=== PATIENT | female | born 1940 | race Caucasian/White ===

== ENCOUNTER 2018-11-17 15:30 | Inpatient (IN) | payer MEDICARE ==
--- NOTE | 2018-11-17 15:55 | EDM.PDOCBH ---
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) - History of Present Illness Onset: Gradual Onset Date: 11/16/18 Onset Time: 08:00 Duration: Hour(s):, Day(s):, Intermittent Location: Reports: Chest Quality: Reports: Other (SOB) Severity: Moderate Improves with: Reports: Rest, Other (sitting up) Worsens with: Reports: Other (supine position), Movement Context: Reports: Other (copd, CHF) Associated Symptoms: Reports: Cough, Shortness of Breath - Related Data Allergies Allergy/AdvReac Type Severity Reaction Status Date / Time morphine Allergy Itching Verified 12/27/15 23:35 Home Meds: Home Meds Baclofen 1 tab PO TID 12/27/15 [History] Brimonidine/Timolol [Combigan 0.2%/0.5% Ophth Soln] 2 drop OP BID 12/27/15 [ History] Latanoprost [Xalatan 0.005% Ophth Soln] 1 drop EYELF BEDTIME 12/27/15 [History] Levothyroxine Sodium [Synthroid] 100 mcg PO DAILY 12/27/15 [History] Oseltamivir [Tamiflu] 1 tab PO DAILY 12/27/15 [History] Sennosides [Senna] 2 tab PO DAILY 12/27/15 [History] Temazepam [Restoril] 15 mg PO BEDTIME PRN 12/27/15 [History] oxyCODONE [Oxycodone HCl] 1 tab PO BID 12/27/15 [History] Past Medical History HEENT History: Reports: Other (See Below) Other HEENT History: CLOSE-ANGLE GLAUCOMA Respiratory History: Reports: COPD Gastrointestinal History: Reports: GERD, Other (See Below) Other Gastrointestinal History: GASTRIC ULCER Musculoskeletal History: Reports: Osteoarthritis, Osteoporosis, Other (See Below ) Other Musculoskeletal History: MULTIPLE SCLEROSIS; CHRONIC PAIN SYNDROME Psychiatric History: Reports: Anxiety, Depression Endocrine/Metabolic History: Reports: Hypothyroidism, Vitamin D Deficiency - Past Surgical History Musculoskeletal Surgical History: Reports: Other (See Below) Social & Family History - Family History Family Medical History: Noncontributory ED ROS GENERAL - Review of Systems Review Of Systems: Unable To Obtain ED EXAM, BEHAVIORAL HEALTH - Physical Exam Exam: See Below Exam Limited By: Altered Mental Status General Appearance: Alert, WD/WN, Moderate Distress Eye Exam: Bilateral Eye: Normal Inspection COURSE, BEHAVIORAL HEALTH COMP - Course Vital Signs: Last Vital Signs Temp 36.8 C 11/17/18 17:29 Pulse 81 11/17/18 17:29 Resp 18 11/17/18 17:29 BP 113/71 11/17/18 17:29 Pulse Ox 97 11/17/18 17:29 Orders, Labs, Meds: Active Orders 24 hr Category Date Time Status Patient Status [ADT] Routine ADT 11/17/18 18:11 Ordered EKG Documentation Completion [RC] ASDIRECTED Care 11/17/18 16:12 Active Oxygen Therapy [RC] PRN Care 11/17/18 18:11 Ordered Pulse Oximetry [RC] PRN Care 11/17/18 18:14 Ordered RT Aerosol Therapy [RC] ASDIRECTED Care 11/17/18 17:56 Active RT Aerosol Therapy [RC] ASDIRECTED Care 11/17/18 18:15 Ordered Up With Assistance [RC] ASDIRECTED Care 11/17/18 18:11 Ordered VTE/DVT Education [RC] Per Unit Routine Care 11/17/18 18:11 Ordered Vital Signs [RC] Q4H Care 11/17/18 18:11 Ordered Regular Diet [DIET] Diet 11/17/18 Breakfast Ordered Chest 1V Frontal [CR] Stat Exams 11/17/18 16:11 Taken CULTURE BLOOD [BC] Urgent Lab 11/17/18 17:50 Received CULTURE BLOOD [BC] Urgent Lab 11/17/18 17:57 Received Albuterol [Proventil Neb Soln] Med 11/17/18 18:11 Ordered 2.5 mg NEB Q2H PRN Sodium Chloride 0.9% [Saline Flush] Med 11/17/18 18:11 Ordered 10 ml FLUSH ASDIRECTED PRN Blood Culture x2 Reflex Set [OM.PC] Urgent Oth 11/17/18 17:34 Ordered Peripheral IV Insertion Adult [OM.PC] Routine Oth 11/17/18 18:11 Ordered Peripheral IV Insertion Adult [OM.PC] Routine Oth 11/17/18 18:20 Ordered Resuscitation Status Routine Resus Stat 11/17/18 18:11 Ordered EKG 12 Lead [EK] Routine Ther 11/17/18 16:11 Ordered Medication Orders Albuterol (Proventil Neb Soln) 2.5 mg NEB Q2H PRN PRN Reason: Shortness Of Breath/wheezing Sodium Chloride (Saline Flush) 10 ml FLUSH ASDIRECTED PRN PRN Reason: Keep Vein Open Laboratory Tests 11/17/18 11/17/18 11/17/18 Range/Units 16:25 16:25 16:25 WBC 8.4 (4.5-12.0) X10-3/uL RBC 4.85 (3.23-5.20) x10(6)uL Hgb 14.1 (11.5-15.5) g/dL Hct 44.1 (30.0-51.3) % MCV 90.9 (80-96) fL MCH 29.1 (27.7-33.6) pg MCHC 32.0 L (32.2-35.4) g/dL RDW 13.8 (11.5-15.5) % Plt Count 209 (125-369) X10(3)uL MPV 8.6 (7.4-10.4) fL Neut % (Auto) 81.4 (46-82) % Lymph % (Auto) 6.2 L (13-37) % Dent % (Auto) 6.7 (4-12) % Eos % (Auto) 5 (1.0-5.0) % Baso % (Auto) 0 (0-2) % Neut # (Auto) 6.9 (1.6-8.3) # Lymph # (Auto) 0.5 L (0.6-5.0) # Dent # (Auto) 0.6 (0.0-1.3) # Eos # (Auto) 0.4 (0.0-0.8) # Baso # (Auto) 0.0 (0.0-0.2) # POC VBG pH (7.31-7.41) POC VBG pCO2 (41-51) mmHG POC VBG HCO3 (23-28) mmol/L POC VBG Total CO2 (24-29) mmol/L POC VBG Base Excess (-2-3) mmol/L Sodium 140 (135-145) mmol/L Potassium 3.9 (3.5-5.3) mmol/L Chloride 102 (100-110) mmol/L Carbon Dioxide 34 H (21-32) mmol/L BUN 17 (7-18) mg/dL Creatinine 0.8 (0.55-1.02) mg/dL Est Cr Clr Drug Dosing TNP Estimated GFR (MDRD) > 60 (>60) BUN/Creatinine Ratio 21.3 H (9-20) Glucose 114 (80-116) mg/dL Lactic Acid (0.4-2.2) mmol/L Calcium 9.0 (8.6-10.2) mg/dL Troponin I < 0.017 L (<0.017-0.056) ng/mL NT-Pro-B Natriuret Pep 334 (<=450) pg/mL 11/17/18 11/17/18 11/17/18 Range/Units 16:25 16:30 17:42 WBC (4.5-12.0) X10-3/uL RBC (3.23-5.20) x10(6)uL Hgb (11.5-15.5) g/dL Hct (30.0-51.3) % MCV (80-96) fL MCH (27.7-33.6) pg MCHC (32.2-35.4) g/dL RDW (11.5-15.5) % Plt Count (125-369) X10(3)uL MPV (7.4-10.4) fL Neut % (Auto) (46-82) % Lymph % (Auto) (13-37) % Dent % (Auto) (4-12) % Eos % (Auto) (1.0-5.0) % Baso % (Auto) (0-2) % Neut # (Auto) (1.6-8.3) # Lymph # (Auto) (0.6-5.0) # Dent # (Auto) (0.0-1.3) # Eos # (Auto) (0.0-0.8) # Baso # (Auto) (0.0-0.2) # POC VBG pH 7.28 L Cancelled (7.31-7.41) POC VBG pCO2 71.2 H Cancelled (41-51) mmHG POC VBG HCO3 33.6 H Cancelled (23-28) mmol/L POC VBG Total CO2 36 H Cancelled (24-29) mmol/L POC VBG Base Excess 7 H Cancelled (-2-3) mmol/L Sodium (135-145) mmol/L Potassium (3.5-5.3) mmol/L Chloride (100-110) mmol/L Carbon Dioxide (21-32) mmol/L BUN (7-18) mg/dL Creatinine (0.55-1.02) mg/dL Est Cr Clr Drug Dosing Estimated GFR (MDRD) (>60) BUN/Creatinine Ratio (9-20) Glucose (80-116) mg/dL Lactic Acid 0.7 (0.4-2.2) mmol/L Calcium (8.6-10.2) mg/dL Troponin I (<0.017-0.056) ng/mL NT-Pro-B Natriuret Pep (<=450) pg/mL Medications Generic Name Dose Route Start Last Admin Trade Name Freq PRN Reason Stop Dose Admin Albuterol 2.5 mg 11/17/18 18:11 Proventil Neb Soln NEB Q2H PRN Shortness Of Breath/wheezing Sodium Chloride 10 ml 11/17/18 18:11 Saline Flush FLUSH ASDIRECTED PRN Keep Vein Open Discontinued Medications Generic Name Dose Route Start Last Admin Trade Name Freq PRN Reason Stop Dose Admin Albuterol/Ipratropium 3 ml 11/17/18 17:56 Duoneb 3.0-0.5 Mg/3 Ml NEB 11/17/18 17:57 ONETIME STA Levofloxacin 500 mg 11/17/18 18:08 Levaquin PO 11/17/18 18:09 ONETIME ONE Methylprednisolone Sodium Succinate 125 mg 11/17/18 18:03 Solu-Medrol IVPUSH 11/17/18 18:04 ONETIME ONE Departure - Discharge Information Referrals: Bruce Mitchell MD [Primary Care Provider] - - My Orders Last 24 Hours: My Active Orders 11/17/18 16:11 Chest 1V Frontal [CR] Stat EKG 12 Lead [EK] Routine 11/17/18 16:12 EKG Documentation Completion [RC] ASDIRECTED 11/17/18 17:34 Blood Culture x2 Reflex Set [OM.PC] Urgent 11/17/18 17:50 CULTURE BLOOD [BC] Urgent 11/17/18 17:56 RT Aerosol Therapy [RC] ASDIRECTED 11/17/18 17:57 CULTURE BLOOD [BC] Urgent 11/17/18 18:11 Patient Status [ADT] Routine Oxygen Therapy [RC] PRN Up With Assistance [RC] ASDIRECTED VTE/DVT Education [RC] Per Unit Routine Vital Signs [RC] Q4H Albuterol [Proventil Neb Soln] 2.5 mg NEB Q2H PRN Sodium Chloride 0.9% [Saline Flush] 10 ml FLUSH ASDIRECTED PRN Peripheral IV Insertion Adult [OM.PC] Routine Resuscitation Status Routine 11/17/18 18:14 Pulse Oximetry [RC] PRN 11/17/18 18:15 RT Aerosol Therapy [RC] ASDIRECTED 11/17/18 18:20 Peripheral IV Insertion Adult [OM.PC] Routine 11/17/18 Breakfast Regular Diet [DIET] - Assessment/Plan Last 24 Hours: My Active Orders 11/17/18 16:11 Chest 1V Frontal [CR] Stat EKG 12 Lead [EK] Routine 11/17/18 16:12 EKG Documentation Completion [RC] ASDIRECTED 11/17/18 17:34 Blood Culture x2 Reflex Set [OM.PC] Urgent 11/17/18 17:50 CULTURE BLOOD [BC] Urgent 11/17/18 17:56 RT Aerosol Therapy [RC] ASDIRECTED 11/17/18 17:57 CULTURE BLOOD [BC] Urgent 11/17/18 18:11 Patient Status [ADT] Routine Oxygen Therapy [RC] PRN Up With Assistance [RC] ASDIRECTED VTE/DVT Education [RC] Per Unit Routine Vital Signs [RC] Q4H Albuterol [Proventil Neb Soln] 2.5 mg NEB Q2H PRN Sodium Chloride 0.9% [Saline Flush] 10 ml FLUSH ASDIRECTED PRN Peripheral IV Insertion Adult [OM.PC] Routine Resuscitation Status Routine 11/17/18 18:14 Pulse Oximetry [RC] PRN 11/17/18 18:15 RT Aerosol Therapy [RC] ASDIRECTED 11/17/18 18:20 Peripheral IV Insertion Adult [OM.PC] Routine 11/17/18 Breakfast Regular Diet [DIET]
[2018-11-17] MEDS ORDERED: Albuterol/Ipratropium 3.0-0.5 MG/3 ML Neb Soln NEB STA (17:56)
[2018-11-17] MEDS ORDERED: methylPREDNISolone Sodium Succinate 125 MG/2 ML SDV IVPUSH ONE (18:03)
[2018-11-17] MEDS ORDERED: Levofloxacin 500 MG Tab PO ONE (18:08)
[2018-11-17] MEDS ORDERED: Sodium Chloride 0.9% 10 ML Syringe FLUSH PRN (18:11)
[2018-11-17] MEDS ORDERED: Albuterol 0.083% 2.5 MG/3 ML Neb Soln NEB PRN (18:11)
--- NOTE | 2018-11-17 18:35 | EDM.PDOC ---
ED HPI GENERAL MEDICAL PROBLEM - General Chief Complaint: Respiratory Problem Stated Complaint: TEMP Time Seen by Provider: 11/17/18 15:30 Source of Information: Reports: Patient, Other (managed care nurse) History Limitations: Reports: Altered Mental Status, Physical Impairment - History of Present Illness INITIAL COMMENTS - FREE TEXT/NARRATIVE: 78 y.o.w.f with multiple med issues, including COPD, morbid obesity, weakness, came [place] the [place] to the [place] because she could not breath. Her Pulse ox on RA is 86% in supine position, in upright position it was 89%, no chest pain, legs are swollen and painful. No N/V/D Pt is a poor historian, no family is present BP 131/108 Temp 36.8 RR 18 Pulse ox 97% on 3 liters O2 Pulse 73 Onset Date: 11/15/18 Onset Time: 08:00 Duration: Day(s):, Getting Worse, Waxing/Waning Location: Reports: Chest, Generalized Severity: Moderate Improves with: Reports: Medication, Rest Worsens with: Reports: Movement Context: Reports: Sick Contact Associated Symptoms: Reports: Cough, Fever/Chills, Shortness of Breath, Weakness Treatments BALL[employer]TRIDGE TESTER: Reports: Oxygen - Related Data Allergies Allergy/AdvReac Type Severity Reaction Status Date / Time morphine Allergy Itching Verified 12/27/15 23:35 Home Meds: Home Meds Baclofen 1 tab PO TID 12/27/15 [History] Brimonidine/Timolol [Combigan 0.2%/0.5% Ophth Soln] 2 drop OP BID 12/27/15 [ History] Latanoprost [Xalatan 0.005% Ophth Soln] 1 drop EYELF BEDTIME 12/27/15 [History] Levothyroxine Sodium [Synthroid] 100 mcg PO DAILY 12/27/15 [History] Sennosides [Senna] 2 tab PO DAILY 12/27/15 [History] oxyCODONE [Oxycodone HCl] 1 tab PO BID 12/27/15 [History] Ascorbic Acid [Vitamin C] 250 mg PO DAILY 11/17/18 [History] Cranberry 500 mg PO DAILY 11/17/18 [History] Melatonin 5 mg PO BEDTIME 11/17/18 [History] Propranolol HCl [Propranolol HCl ER] 60 mg PO DAILY 11/17/18 [History] Vortioxetine Hydrobromide [Trintellix] 5 mg PO DAILY 11/17/18 [History] hydrOXYzine pamoate [Hydroxyzine Pamoate] 50 mg PO DAILY 11/17/18 [History] risperiDONE [Risperdal] 0.25 mg PO DAILY 11/17/18 [History] Past Medical History HEENT History: Reports: Other (See Below) Other HEENT History: CLOSE-ANGLE GLAUCOMA Respiratory History: Reports: COPD Gastrointestinal History: Reports: GERD, Other (See Below) Other Gastrointestinal History: GASTRIC ULCER Musculoskeletal History: Reports: Osteoarthritis, Osteoporosis, Other (See Below ) Other Musculoskeletal History: MULTIPLE SCLEROSIS; CHRONIC PAIN SYNDROME Neurological History: Reports: None Psychiatric History: Reports: Anxiety, Depression Endocrine/Metabolic History: Reports: Hypothyroidism, Vitamin D Deficiency Dermatologic History: Reports: None - Past Surgical History Musculoskeletal Surgical History: Reports: Other (See Below) Social & Family History - Family History Family Medical History: Noncontributory - Tobacco Use Smoking Status *Q: Unknown Ever Smoked - Caffeine Use Caffeine Use: Reports: Coffee - Recreational Drug Use Recreational Drug Use: No ED ROS GENERAL - Review of Systems Review Of Systems: See Below Constitutional: Reports: Weakness, Weight Gain HEENT: Reports: No Symptoms Respiratory: Reports: Shortness of Breath Cardiovascular: Reports: Blood Pressure Problem Endocrine: Reports: No Symptoms GI/Abdominal: Reports: No Symptoms : Reports: No Symptoms Musculoskeletal: Reports: Other (weakness) Skin: Reports: No Symptoms Neurological: Reports: Difficulty Walking, Weakness Psychiatric: Reports: No Symptoms Hematologic/Lymphatic: Reports: No Symptoms Immunologic: Reports: No Symptoms ED EXAM, GENERAL - Physical Exam Exam: See Below Exam Limited By: Physical Impairment General Appearance: Alert, WD/WN, Moderate Distress, Obese Eye Exam: Bilateral Eye: Normal Inspection Ears: Normal External Exam Ear Exam: Bilateral Ear: Auricle Normal Nose: Normal Inspection, Normal Mucosa, No Blood Throat/Mouth: Normal Lips, Normal Voice, No Airway Compromise Head: Atraumatic, Normocephalic Neck: Normal Inspection, Supple, Non-Tender, Full Range of Motion Respiratory/Chest: Respiratory Distress, Crackles, Rales, Rhonchi, Wheezing, Accessory Muscle Use, Prolonged Expiration Cardiovascular: Normal Peripheral Pulses, Regular Rate, Rhythm Peripheral Pulses: 2+: Brachial (L) GI/Abdominal: Normal Bowel Sounds, Soft, Non-Tender (Female) Exam: Deferred Rectal (Female) Exam: Deferred Back Exam: Normal Inspection, Full Range of Motion Extremities: Normal Range of Motion, Normal Capillary Refill, Pedal Edema Neurological: Alert, CN II-XII Intact, Abnormal Gait (too weak to ambulate) Psychiatric: Flat Affect Skin Exam: Warm, Dry, Intact, Normal Color, No Rash Lymphatic: No Adenopathy EKG INTERPRETATION EKG Date: 11/17/18 Time: 16:40 Rhythm: NSR Rate (Beats/Min): 69 Watson: Normal P-Wave: Present QRS: Normal ST-T: Normal QT: Normal Comparison: NA - No Prior EKG Course - Vital Signs Text/Narrative:: 78 y.o.w.f with multiple med issues, including COPD, morbid obesity, weakness, came from the [place] to the ed because she could not breath. Her Pulse ox on RA is 86% in supine position, in upright position it was 89%, no chest pain, legs are swollen and painful. No N/V/D Pt is a poor historian, no family is present BP 131/108 Temp 36.8 RR 18 Pulse ox 97% on 3 liters O2 Pulse 73 PE: 78 y.o.w.f with mulp medical problems came to the ED with Hypoxemia Imaging: CXR: Left sided lower lobe pneumonia, COPD, Atelectasis, CHF as per RAD Labs: CBC: Nl wbc H/H nl BNP 334, CO2 34 Trop 0.017 D Dimer: 1.05 Impression: CHF, COPD with hypoxemia, pneumonia. Morbid obesity. DNR/DNI, D dimer elevated Tx: 2 liters O2 by Xiao ROSENBERG. Duoneb, Solu Medrol. BP was borderline, low, no Lasix was given. Pt refused Lovenox 1mg/kg Reexam: Pt was stable in the ED 6.06 pm Consultation: Dr. Ashley, Hospitalist: Admit pt to [facility] Plan: Admit pt to [facility]. Angio Chest ordered for 9 am 11/18/2018: was canceled because pt refused Lovenox shots Last Recorded V/S: Last Vital Signs Temp 36.7 C 11/18/18 00:00 Pulse 64 11/18/18 00:00 Resp 16 11/18/18 00:00 BP 105/56 L 11/18/18 00:00 Pulse Ox 93 L 11/18/18 00:00 - Orders/Labs/Meds Orders: Active Orders 24 hr Category Date Time Status Patient Status [ADT] Routine ADT 11/17/18 18:11 Active EKG Documentation Completion [RC] ASDIRECTED Care 11/17/18 16:12 Active Oxygen Therapy [RC] PRN Care 11/17/18 18:11 Active Pulse Oximetry [RC] PRN Care 11/17/18 18:14 Active RT Aerosol Therapy [RC] ASDIRECTED Care 11/17/18 17:56 Active RT Aerosol Therapy [RC] ASDIRECTED Care 11/17/18 18:15 Active Up With Assistance [RC] ASDIRECTED Care 11/17/18 18:11 Active VTE/DVT Education [RC] Per Unit Routine Care 11/17/18 18:11 Active Vital Signs [RC] 00,04,08,12,16,20 Care 11/17/18 18:11 Active Regular Diet [DIET] Diet 11/17/18 Breakfast Ordered Chest 1V Frontal [CR] Stat Exams 11/17/18 16:11 Taken CULTURE BLOOD [BC] Urgent Lab 11/17/18 17:50 Received CULTURE BLOOD [BC] Urgent Lab 11/17/18 17:57 Received Albuterol [Proventil Neb Soln] Med 11/17/18 18:11 Active 2.5 mg NEB Q2H PRN Sodium Chloride 0.9% [Saline Flush] Med 11/17/18 18:11 Active 10 ml FLUSH ASDIRECTED PRN Blood Culture x2 Reflex Set [OM.PC] Urgent Oth 11/17/18 17:34 Ordered Peripheral IV Insertion Adult [OM.PC] Routine Oth 11/17/18 18:11 Ordered Peripheral IV Insertion Adult [OM.PC] Routine Oth 11/17/18 18:20 Ordered Resuscitation Status Routine Resus Stat 11/17/18 18:11 Ordered EKG 12 Lead [EK] Routine Ther 11/17/18 16:11 Ordered Medication Orders Albuterol (Proventil Neb Soln) 2.5 mg NEB Q2H PRN PRN Reason: Shortness Of Breath/wheezing Sodium Chloride (Saline Flush) 10 ml FLUSH ASDIRECTED PRN PRN Reason: Keep Vein Open Last Admin: 11/17/18 18:48 Dose: 10 ml Labs: Laboratory Tests 11/17/18 11/17/18 11/17/18 Range/Units 16:25 16:25 16:25 WBC 8.4 (4.5-12.0) X10-3/uL RBC 4.85 (3.23-5.20) x10(6)uL Hgb 14.1 (11.5-15.5) g/dL Hct 44.1 (30.0-51.3) % MCV 90.9 (80-96) fL MCH 29.1 (27.7-33.6) pg MCHC 32.0 L (32.2-35.4) g/dL RDW 13.8 (11.5-15.5) % Plt Count 209 (125-369) X10(3)uL MPV 8.6 (7.4-10.4) fL Neut % (Auto) 81.4 (46-82) % Lymph % (Auto) 6.2 L (13-37) % Young % (Auto) 6.7 (4-12) % Eos % (Auto) 5 (1.0-5.0) % Baso % (Auto) 0 (0-2) % Neut # (Auto) 6.9 (1.6-8.3) # Lymph # (Auto) 0.5 L (0.6-5.0) # Young # (Auto) 0.6 (0.0-1.3) # Eos # (Auto) 0.4 (0.0-0.8) # Baso # (Auto) 0.0 (0.0-0.2) # D-Dimer, Quantitative (0.0-0.59) mg/LFEU POC VBG pH (7.31-7.41) POC VBG pCO2 (41-51) mmHG POC VBG HCO3 (23-28) mmol/L POC VBG Total CO2 (24-29) mmol/L POC VBG Base Excess (-2-3) mmol/L Sodium 140 (135-145) mmol/L Potassium 3.9 (3.5-5.3) mmol/L Chloride 102 (100-110) mmol/L Carbon Dioxide 34 H (21-32) mmol/L BUN 17 (7-18) mg/dL Creatinine 0.8 (0.55-1.02) mg/dL Est Cr Clr Drug Dosing TNP Estimated GFR (MDRD) > 60 (>60) BUN/Creatinine Ratio 21.3 H (9-20) Glucose 114 (80-116) mg/dL Lactic Acid (0.4-2.2) mmol/L Calcium 9.0 (8.6-10.2) mg/dL Troponin I < 0.017 L (<0.017-0.056) ng/mL NT-Pro-B Natriuret Pep 334 (<=450) pg/mL 11/17/18 11/17/18 11/17/18 Range/Units 16:25 16:25 16:30 WBC (4.5-12.0) X10-3/uL RBC (3.23-5.20) x10(6)uL Hgb (11.5-15.5) g/dL Hct (30.0-51.3) % MCV (80-96) fL MCH (27.7-33.6) pg MCHC (32.2-35.4) g/dL RDW (11.5-15.5) % Plt Count (125-369) X10(3)uL MPV (7.4-10.4) fL Neut % (Auto) (46-82) % Lymph % (Auto) (13-37) % Young % (Auto) (4-12) % Eos % (Auto) (1.0-5.0) % Baso % (Auto) (0-2) % Neut # (Auto) (1.6-8.3) # Lymph # (Auto) (0.6-5.0) # Young # (Auto) (0.0-1.3) # Eos # (Auto) (0.0-0.8) # Baso # (Auto) (0.0-0.2) # D-Dimer, Quantitative 1.05 H (0.0-0.59) mg/LFEU POC VBG pH 7.28 L (7.31-7.41) POC VBG pCO2 71.2 H (41-51) mmHG POC VBG HCO3 33.6 H (23-28) mmol/L POC VBG Total CO2 36 H (24-29) mmol/L POC VBG Base Excess 7 H (-2-3) mmol/L Sodium (135-145) mmol/L Potassium (3.5-5.3) mmol/L Chloride (100-110) mmol/L Carbon Dioxide (21-32) mmol/L BUN (7-18) mg/dL Creatinine (0.55-1.02) mg/dL Est Cr Clr Drug Dosing Estimated GFR (MDRD) (>60) BUN/Creatinine Ratio (9-20) Glucose (80-116) mg/dL Lactic Acid 0.7 (0.4-2.2) mmol/L Calcium (8.6-10.2) mg/dL Troponin I (<0.017-0.056) ng/mL NT-Pro-B Natriuret Pep (<=450) pg/mL 11/17/18 Range/Units 17:42 WBC (4.5-12.0) X10-3/uL RBC (3.23-5.20) x10(6)uL Hgb (11.5-15.5) g/dL Hct (30.0-51.3) % MCV (80-96) fL MCH (27.7-33.6) pg MCHC (32.2-35.4) g/dL RDW (11.5-15.5) % Plt Count (125-369) X10(3)uL MPV (7.4-10.4) fL Neut % (Auto) (46-82) % Lymph % (Auto) (13-37) % Young % (Auto) (4-12) % Eos % (Auto) (1.0-5.0) % Baso % (Auto) (0-2) % Neut # (Auto) (1.6-8.3) # Lymph # (Auto) (0.6-5.0) # Young # (Auto) (0.0-1.3) # Eos # (Auto) (0.0-0.8) # Baso # (Auto) (0.0-0.2) # D-Dimer, Quantitative (0.0-0.59) mg/LFEU POC VBG pH Cancelled (7.31-7.41) POC VBG pCO2 Cancelled (41-51) mmHG POC VBG HCO3 Cancelled (23-28) mmol/L POC VBG Total CO2 Cancelled (24-29) mmol/L POC VBG Base Excess Cancelled (-2-3) mmol/L Sodium (135-145) mmol/L Potassium (3.5-5.3) mmol/L Chloride (100-110) mmol/L Carbon Dioxide (21-32) mmol/L BUN (7-18) mg/dL Creatinine (0.55-1.02) mg/dL Est Cr Clr Drug Dosing Estimated GFR (MDRD) (>60) BUN/Creatinine Ratio (9-20) Glucose (80-116) mg/dL Lactic Acid (0.4-2.2) mmol/L Calcium (8.6-10.2) mg/dL Troponin I (<0.017-0.056) ng/mL NT-Pro-B Natriuret Pep (<=450) pg/mL Meds: Medications Generic Name Dose Route Start Last Admin Trade Name Freq PRN Reason Stop Dose Admin Albuterol 2.5 mg 11/17/18 18:11 Proventil Neb Soln NEB Q2H PRN Shortness Of Breath/wheezing Sodium Chloride 10 ml 11/17/18 18:11 11/17/18 18:48 Saline Flush FLUSH 10 ml ASDIRECTED PRN Administration Keep Vein Open Discontinued Medications Generic Name Dose Route Start Last Admin Trade Name Freq PRN Reason Stop Dose Admin Albuterol/Ipratropium 3 ml 11/17/18 17:56 11/17/18 18:30 Duoneb 3.0-0.5 Mg/3 Ml NEB 11/17/18 17:57 3 ml ONETIME STA Administration Enoxaparin Sodium 80 mg 11/18/18 02:08 11/18/18 02:42 Lovenox SUBCUT 11/18/18 02:09 Not Given ONETIME STA Levofloxacin 500 mg 11/17/18 18:08 11/17/18 18:31 Levaquin PO 11/17/18 18:09 500 mg ONETIME ONE Administration Methylprednisolone Sodium Succinate 125 mg 11/17/18 18:03 11/17/18 18:30 Solu-Medrol IVPUSH 11/17/18 18:04 125 mg ONETIME ONE Administration Departure - Departure Time of Disposition: 18:00 Disposition: Admitted As Inpatient 66 Condition: Fair Clinical Impression: COPD (chronic obstructive pulmonary disease), Pneumonia - Discharge Information - My Orders Last 24 Hours: My Active Orders 11/17/18 16:11 Chest 1V Frontal [CR] Stat EKG 12 Lead [EK] Routine 11/17/18 16:12 EKG Documentation Completion [RC] ASDIRECTED 11/17/18 17:34 Blood Culture x2 Reflex Set [OM.PC] Urgent 11/17/18 17:50 CULTURE BLOOD [BC] Urgent 11/17/18 17:56 RT Aerosol Therapy [RC] ASDIRECTED 11/17/18 17:57 CULTURE BLOOD [BC] Urgent 11/17/18 18:11 Patient Status [ADT] Routine Oxygen Therapy [RC] PRN Up With Assistance [RC] ASDIRECTED VTE/DVT Education [RC] Per Unit Routine Vital Signs [RC] 00,04,08,12,16,20 Albuterol [Proventil Neb Soln] 2.5 mg NEB Q2H PRN Sodium Chloride 0.9% [Saline Flush] 10 ml FLUSH ASDIRECTED PRN Peripheral IV Insertion Adult [OM.PC] Routine Resuscitation Status Routine 11/17/18 18:14 Pulse Oximetry [RC] PRN 11/17/18 18:15 RT Aerosol Therapy [RC] ASDIRECTED 11/17/18 18:20 Peripheral IV Insertion Adult [OM.PC] Routine 11/17/18 Breakfast Regular Diet [DIET] - Assessment/Plan Last 24 Hours: My Active Orders 11/17/18 16:11 Chest 1V Frontal [CR] Stat EKG 12 Lead [EK] Routine 11/17/18 16:12 EKG Documentation Completion [RC] ASDIRECTED 11/17/18 17:34 Blood Culture x2 Reflex Set [OM.PC] Urgent 11/17/18 17:50 CULTURE BLOOD [BC] Urgent 11/17/18 17:56 RT Aerosol Therapy [RC] ASDIRECTED 11/17/18 17:57 CULTURE BLOOD [BC] Urgent 11/17/18 18:11 Patient Status [ADT] Routine Oxygen Therapy [RC] PRN Up With Assistance [RC] ASDIRECTED VTE/DVT Education [RC] Per Unit Routine Vital Signs [RC] 00,04,08,12,16,20 Albuterol [Proventil Neb Soln] 2.5 mg NEB Q2H PRN Sodium Chloride 0.9% [Saline Flush] 10 ml FLUSH ASDIRECTED PRN Peripheral IV Insertion Adult [OM.PC] Routine Resuscitation Status Routine 02/14/19 18:14 Pulse Oximetry [RC] PRN 11/17/18 18:15 RT Aerosol Therapy [RC] ASDIRECTED 11/17/18 18:20 Peripheral IV Insertion Adult [OM.PC] Routine 11/17/18 Breakfast Regular Diet [DIET]
[2018-11-18] MEDS ORDERED: Enoxaparin 80 MG/0.8 ML Syringe SUBCUT STA (02:08)
--- NOTE | 2018-11-18 09:29 | CR ---
INDICATION: Short of breath. CHEST: An AP upright portable view of the chest was obtained, 11/17/18, and compared with 11/09/18. There is a linear density in the lower middle lung field on the left, which may represent a linear atelectatic strand, which appears more prominent than on the previous study. No definite consolidating pneumonia or effusion was seen; however, heavy markings are noted in the mid lung field on the right and at both lung bases, especially on the left, making it difficult to exclude minimal patchy bronchopneumonia. Diaphragm leaves appear to be flattened with hyperaeration suggesting COPD. The heart did not appear grossly enlarged. The aorta is tortuous with calcification in the arch. Dextroconvex scoliosis is noted at the thoracolumbar spine. IMPRESSION: 1. No definite acute process but difficult to exclude a linear atelectatic strand in the lower middle lung field on the left and minimal patchy bronchopneumonia and areas of heavy markings, which more likely are due to pulmonary fibrosis and should be correlated clinically. 2. Probable COPD. 3. Probable pulmonary fibrosis. 4. ASD aorta. 5. Scoliosis. Report was called to Dr. Ayers at 1728 hours on 11/17/18. [id number]
--- NOTE | 2018-11-18 09:57 | PCM.HP ---
H&P History of Present Illness - General Date of Service: 11/18/18 Admit Problem/Dx: Admission Diagnosis/Problem Admission Diagnosis/Problem Pneumonia Source of Information: Patient, Old Records - History of Present Illness Initial Comments - Free Text/Narative: Jen is a 78-year-old female admitted because of possible pneumonia. She presented to the ED with good fever increasing shortness of breath and was found to be slightly hypoxic. She complains of no chest pain or cough no nausea vomiting. She does have a history of COPD, she is oxygen dependent, she has MS , hypertension and has been generally weak. - Related Data Allergies/Adverse Reactions: Allergies Allergy/AdvReac Type Severity Reaction Status Date / Time morphine Allergy Itching Verified 12/27/15 23:35 Home Medications: Home Meds Baclofen 1 tab PO TID 12/27/15 [History] Brimonidine/Timolol [Combigan 0.2%/0.5% Ophth Soln] 2 drop OP BID 12/27/15 [ History] Latanoprost [Xalatan 0.005% Ophth Soln] 1 drop EYELF BEDTIME 12/27/15 [History] Levothyroxine Sodium [Synthroid] 100 mcg PO DAILY 12/27/15 [History] Sennosides [Senna] 2 tab PO DAILY 12/27/15 [History] oxyCODONE [Oxycodone HCl] 1 tab PO BID 12/27/15 [History] Ascorbic Acid [Vitamin C] 250 mg PO DAILY 11/17/18 [History] Cranberry 500 mg PO DAILY 11/17/18 [History] Melatonin 5 mg PO BEDTIME 11/17/18 [History] Propranolol HCl [Propranolol HCl ER] 60 mg PO DAILY 11/17/18 [History] Vortioxetine Hydrobromide [Trintellix] 5 mg PO DAILY 11/17/18 [History] hydrOXYzine pamoate [Hydroxyzine Pamoate] 50 mg PO DAILY 11/17/18 [History] risperiDONE [Risperdal] 0.25 mg PO DAILY 11/17/18 [History] Past Medical History HEENT History: Reports: Other (See Below) Other HEENT History: CLOSE-ANGLE GLAUCOMA Respiratory History: Reports: COPD Gastrointestinal History: Reports: GERD, Other (See Below) Other Gastrointestinal History: GASTRIC ULCER Musculoskeletal History: Reports: Osteoarthritis, Osteoporosis, Other (See Below ) Other Musculoskeletal History: MULTIPLE SCLEROSIS; CHRONIC PAIN SYNDROME Neurological History: Reports: None Psychiatric History: Reports: Anxiety, Depression Endocrine/Metabolic History: Reports: Hypothyroidism, Vitamin D Deficiency Dermatologic History: Reports: None - Past Surgical History Musculoskeletal Surgical History: Reports: Other (See Below) Social & Family History - Family History Family Medical History: Noncontributory - Tobacco Use Smoking Status *Q: Unknown Ever Smoked - Caffeine Use Caffeine Use: Reports: Coffee - Recreational Drug Use Recreational Drug Use: No H&P Review of Systems - Review of Systems: Review Of Systems: ROS reveals no pertinent complaints other than HPI. Exam - Exam Exam: See Below - Vital Signs Vital Signs: Last Vital Signs Temp 98.0 F 11/18/18 04:00 Pulse 54 L 11/18/18 04:00 Resp 16 11/18/18 04:00 BP 96/54 L 11/18/18 04:00 Pulse Ox 94 L 11/18/18 04:00 Weight: 76.345 kg - Exam Quality Assessment: Supplemental Oxygen General: Alert HEENT: PERRLA Neck: Supple Lungs: Crackles Cardiovascular: Regular Rate GI/Abdominal Exam: Normal Bowel Sounds (Female) Exam: Deferred Rectal (Female) Exam: Deferred Back Exam: Normal Inspection Extremities: Pedal Edema Skin: Warm Neurological: Cranial Nerves Intact Psychiatric: Alert, Normal Affect - Patient Data Lab Results Last 24 hrs: Laboratory Results - last 24 hr 11/17/18 11/17/18 11/17/18 Range/Units 16:25 16:25 16:25 WBC 8.4 (4.5-12.0) X10-3/uL RBC 4.85 (3.23-5.20) x10(6)uL Hgb 14.1 (11.5-15.5) g/dL Hct 44.1 (30.0-51.3) % MCV 90.9 (80-96) fL MCH 29.1 (27.7-33.6) pg MCHC 32.0 L (32.2-35.4) g/dL RDW 13.8 (11.5-15.5) % Plt Count 209 (125-369) X10(3)uL MPV 8.6 (7.4-10.4) fL Neut % (Auto) 81.4 (46-82) % Lymph % (Auto) 6.2 L (13-37) % Kimble % (Auto) 6.7 (4-12) % Eos % (Auto) 5 (1.0-5.0) % Baso % (Auto) 0 (0-2) % Neut # (Auto) 6.9 (1.6-8.3) # Lymph # (Auto) 0.5 L (0.6-5.0) # Kimble # (Auto) 0.6 (0.0-1.3) # Eos # (Auto) 0.4 (0.0-0.8) # Baso # (Auto) 0.0 (0.0-0.2) # D-Dimer, Quantitative (0.0-0.59) mg/LFEU POC VBG pH (7.31-7.41) POC VBG pCO2 (41-51) mmHG POC VBG HCO3 (23-28) mmol/L POC VBG Total CO2 (24-29) mmol/L POC VBG Base Excess (-2-3) mmol/L Sodium 140 (135-145) mmol/L Potassium 3.9 (3.5-5.3) mmol/L Chloride 102 (100-110) mmol/L Carbon Dioxide 34 H (21-32) mmol/L BUN 17 (7-18) mg/dL Creatinine 0.8 (0.55-1.02) mg/dL Est Cr Clr Drug Dosing TNP Estimated GFR (MDRD) > 60 (>60) BUN/Creatinine Ratio 21.3 H (9-20) Glucose 114 (80-116) mg/dL Lactic Acid (0.4-2.2) mmol/L Calcium 9.0 (8.6-10.2) mg/dL Troponin I < 0.017 L (<0.017-0.056) ng/mL NT-Pro-B Natriuret Pep 334 (<=450) pg/mL 11/17/18 11/17/18 11/17/18 Range/Units 16:25 16:25 16:30 WBC (4.5-12.0) X10-3/uL RBC (3.23-5.20) x10(6)uL Hgb (11.5-15.5) g/dL Hct (30.0-51.3) % MCV (80-96) fL MCH (27.7-33.6) pg MCHC (32.2-35.4) g/dL RDW (11.5-15.5) % Plt Count (125-369) X10(3)uL MPV (7.4-10.4) fL Neut % (Auto) (46-82) % Lymph % (Auto) (13-37) % Kimble % (Auto) (4-12) % Eos % (Auto) (1.0-5.0) % Baso % (Auto) (0-2) % Neut # (Auto) (1.6-8.3) # Lymph # (Auto) (0.6-5.0) # Kimble # (Auto) (0.0-1.3) # Eos # (Auto) (0.0-0.8) # Baso # (Auto) (0.0-0.2) # D-Dimer, Quantitative 1.05 H (0.0-0.59) mg/LFEU POC VBG pH 7.28 L (7.31-7.41) POC VBG pCO2 71.2 H (41-51) mmHG POC VBG HCO3 33.6 H (23-28) mmol/L POC VBG Total CO2 36 H (24-29) mmol/L POC VBG Base Excess 7 H (-2-3) mmol/L Sodium (135-145) mmol/L Potassium (3.5-5.3) mmol/L Chloride (100-110) mmol/L Carbon Dioxide (21-32) mmol/L BUN (7-18) mg/dL Creatinine (0.55-1.02) mg/dL Est Cr Clr Drug Dosing Estimated GFR (MDRD) (>60) BUN/Creatinine Ratio (9-20) Glucose (80-116) mg/dL Lactic Acid 0.7 (0.4-2.2) mmol/L Calcium (8.6-10.2) mg/dL Troponin I (<0.017-0.056) ng/mL NT-Pro-B Natriuret Pep (<=450) pg/mL 11/17/18 Range/Units 17:42 WBC (4.5-12.0) X10-3/uL RBC (3.23-5.20) x10(6)uL Hgb (11.5-15.5) g/dL Hct (30.0-51.3) % MCV (80-96) fL MCH (27.7-33.6) pg MCHC (32.2-35.4) g/dL RDW (11.5-15.5) % Plt Count (125-369) X10(3)uL MPV (7.4-10.4) fL Neut % (Auto) (46-82) % Lymph % (Auto) (13-37) % Kimble % (Auto) (4-12) % Eos % (Auto) (1.0-5.0) % Baso % (Auto) (0-2) % Neut # (Auto) (1.6-8.3) # Lymph # (Auto) (0.6-5.0) # Kimble # (Auto) (0.0-1.3) # Eos # (Auto) (0.0-0.8) # Baso # (Auto) (0.0-0.2) # D-Dimer, Quantitative (0.0-0.59) mg/LFEU POC VBG pH Cancelled (7.31-7.41) POC VBG pCO2 Cancelled (41-51) mmHG POC VBG HCO3 Cancelled (23-28) mmol/L POC VBG Total CO2 Cancelled (24-29) mmol/L POC VBG Base Excess Cancelled (-2-3) mmol/L Sodium (135-145) mmol/L Potassium (3.5-5.3) mmol/L Chloride (100-110) mmol/L Carbon Dioxide (21-32) mmol/L BUN (7-18) mg/dL Creatinine (0.55-1.02) mg/dL Est Cr Clr Drug Dosing Estimated GFR (MDRD) (>60) BUN/Creatinine Ratio (9-20) Glucose (80-116) mg/dL Lactic Acid (0.4-2.2) mmol/L Calcium (8.6-10.2) mg/dL Troponin I (<0.017-0.056) ng/mL NT-Pro-B Natriuret Pep (<=450) pg/mL Result Diagrams: 11/17/18 16:25 11/17/18 16:25 - Problem List (1) COPD (chronic obstructive pulmonary disease) SNOMED Code(s): 73584029 ICD Code: J44.9 - CHRONIC OBSTRUCTIVE PULMONARY DISEASE, UNSPECIFIED Status : Acute Current Visit: Yes Qualifiers: COPD type: COPD with acute exacerbation Qualified Code(s): J44.1 - Chronic obstructive pulmonary disease with (acute) exacerbation (2) Obesity SNOMED Code(s): 115888309, 289161488 ICD Code: E66.9 - OBESITY, UNSPECIFIED Status: Acute Current Visit: Yes (3) HTN (hypertension) SNOMED Code(s): 70614868 ICD Code: I10 - ESSENTIAL (PRIMARY) HYPERTENSION Status: Acute Current Visit: Yes (4) Multiple sclerosis SNOMED Code(s): 14563210 ICD Code: G35 - MULTIPLE SCLEROSIS Status: Acute Current Visit: Yes Problem List Initiated/Reviewed/Updated: Yes Orders Last 24hrs: Active Orders 24 hr Category Date Time Status Patient Status [ADT] Routine ADT 11/17/18 18:11 Active Oxygen Therapy [RC] PRN Care 11/17/18 18:11 Active Pulse Oximetry [RC] PRN Care 11/17/18 18:14 Active RT Aerosol Therapy [RC] ASDIRECTED Care 11/17/18 18:15 Active Up With Assistance [RC] ASDIRECTED Care 11/17/18 18:11 Active VTE/DVT Education [RC] Per Unit Routine Care 11/17/18 18:11 Active Vital Signs [RC] 00,04,08,12,16,20 Care 11/17/18 18:11 Active CULTURE BLOOD [BC] Urgent Lab 11/17/18 17:50 Received CULTURE BLOOD [BC] Urgent Lab 11/17/18 17:57 Received Albuterol [Proventil Neb Soln] Med 11/17/18 18:11 Active 2.5 mg NEB Q2H PRN Sodium Chloride 0.9% [Saline Flush] Med 11/17/18 18:11 Active 10 ml FLUSH ASDIRECTED PRN Blood Culture x2 Reflex Set [OM.PC] Urgent Oth 11/17/18 17:34 Ordered Peripheral IV Insertion Adult [OM.PC] Routine Oth 11/17/18 18:11 Ordered Peripheral IV Insertion Adult [OM.PC] Routine Oth 11/17/18 18:20 Ordered Resuscitation Status Routine Resus Stat 11/17/18 18:11 Ordered EKG 12 Lead [EK] Routine Ther 11/17/18 16:11 Ordered Medication Orders Albuterol (Proventil Neb Soln) 2.5 mg NEB Q2H PRN PRN Reason: Shortness Of Breath/wheezing Sodium Chloride (Saline Flush) 10 ml FLUSH ASDIRECTED PRN PRN Reason: Keep Vein Open Last Admin: 11/17/18 18:48 Dose: 10 ml Assessment/Plan Comment:: I reviewed the x-rays personally ,did not notice any infiltration. She has no white count elevation or fever. A d-dimer was elevated but she declined testing for PE. I will discharge her home with prednisone to finish a course of 5 days.
== END 2018-11-18 11:45 | DRG 192 ==
LOC: FB.ED 15:30 → FB.MS 18:34
PROVIDERS: ADMIT Family Medicine; ATTEND Family Medicine
DX: J44.1 Chronic obstructive pulmonary disease with (acute) exacerbation (principal); R09.02 Hypoxemia; Z66 Do not resuscitate; G35 Multiple sclerosis; R06.02 Shortness of breath; E66.9 Obesity, unspecified; R79.1 Abnormal coagulation profile; E03.9 Hypothyroidism, unspecified; G89.4 Chronic pain syndrome; Z99.81 Dependence on supplemental oxygen; R53.1 Weakness; Z53.29 Procedure and treatment not carried out because of patient's decision for other reasons; H40.20X0 Unspecified primary angle-closure glaucoma, stage unspecified; K21.9 Gastro-esophageal reflux disease without esophagitis; Z87.11 Personal history of peptic ulcer disease; M81.0 Age-related osteoporosis without current pathological fracture; M19.90 Unspecified osteoarthritis, unspecified site; F32.9 Major depressive disorder, single episode, unspecified; F41.9 Anxiety disorder, unspecified; Z88.5 Allergy status to narcotic agent
CPT/HCPCS: 36415; 71045; 80048; 82803; 83605; 83880; 84484; 85025; 85379; 87040; 93005; 96374; 99284; A9270-GY; J2930; J7620-GY

== ENCOUNTER 2020-03-19 21:57 | Emergency (ER) | payer MEDICARE ==
--- NOTE | 2020-03-19 23:22 | EDM.PDOC ---
ED HPI GENERAL MEDICAL PROBLEM - General Chief Complaint: Head Injury Stated Complaint: HEAD INJURY Time Seen by Provider: 03/19/20 22:00 Source of Information: Reports: Patient History Limitations: Reports: No Limitations - History of Present Illness INITIAL COMMENTS - FREE TEXT/NARRATIVE: Patient presented to the ED because of a head injury. She woke to the bathroom, tripped and fell and landed on the floor. She hit the back of her head, there is no LOC, denies having any headache,N/V. She had abrasions at the occipital area of her head. - Related Data Allergies Allergy/AdvReac Type Severity Reaction Status Date / Time morphine Allergy Itching Verified 12/27/15 23:35 Home Meds: Home Meds Baclofen 1 tab PO TID 12/27/15 [History] Brimonidine/Timolol [Combigan 0.2%/0.5% Ophth Soln] 2 drop OP BID 12/27/15 [History] Latanoprost [Xalatan 0.005% Ophth Soln] 1 drop EYELF BEDTIME 12/27/15 [History] Levothyroxine Sodium [Synthroid] 100 mcg PO DAILY 12/27/15 [History] Sennosides [Senna] 2 tab PO DAILY 12/27/15 [History] oxyCODONE 1 tab PO BID 12/27/15 [History] Ascorbic Acid [Vitamin C] 250 mg PO DAILY 11/17/18 [History] Cranberry 500 mg PO DAILY 11/17/18 [History] Melatonin 5 mg PO BEDTIME 11/17/18 [History] Propranolol HCl [Propranolol HCl ER] 60 mg PO DAILY 11/17/18 [History] Vortioxetine Hydrobromide [Trintellix] 5 mg PO DAILY 11/17/18 [History] hydrOXYzine pamoate [Hydroxyzine Pamoate] 50 mg PO DAILY 11/17/18 [History] risperiDONE [Risperdal] 0.25 mg PO DAILY 11/17/18 [History] predniSONE [Prednisone] 20 mg PO BID #10 tablet 11/18/18 [Rx] Past Medical History HEENT History: Reports: Other (See Below) Other HEENT History: CLOSE-ANGLE GLAUCOMA Respiratory History: Reports: COPD Gastrointestinal History: Reports: GERD, Other (See Below) Other Gastrointestinal History: GASTRIC ULCER Musculoskeletal History: Reports: Osteoarthritis, Osteoporosis, Other (See Below) Other Musculoskeletal History: MULTIPLE SCLEROSIS; CHRONIC PAIN SYNDROME Neurological History: Reports: None Psychiatric History: Reports: Anxiety, Depression Endocrine/Metabolic History: Reports: Hypothyroidism, Vitamin D Deficiency Dermatologic History: Reports: None - Past Surgical History Musculoskeletal Surgical History: Reports: Other (See Below) Social & Family History - Family History Family Medical History: Noncontributory - Tobacco Use Smoking Status *Q: Current Status Unknown - Caffeine Use Caffeine Use: Reports: None - Recreational Drug Use Recreational Drug Use: No ED ROS GENERAL - Review of Systems Review Of Systems: See Below Constitutional: Reports: No Symptoms HEENT: Reports: No Symptoms Respiratory: Reports: No Symptoms Cardiovascular: Reports: No Symptoms Endocrine: Reports: No Symptoms GI/Abdominal: Reports: No Symptoms : Reports: No Symptoms Musculoskeletal: Reports: No Symptoms Skin: Reports: No Symptoms Neurological: Reports: No Symptoms Psychiatric: Reports: No Symptoms Hematologic/Lymphatic: Reports: No Symptoms Immunologic: Reports: No Symptoms ED EXAM, HEAD INJURY - Physical Exam Exam: See Below Exam Limited By: No Limitations General Appearance: Alert, No Apparent Distress Head: Atraumatic, Normocephalic Eyes: Bilateral Eye: PERRL Ears: Normal External Exam, Normal Canal, Hearing Grossly Normal, Normal TMs Nose: Normal Inspection, Normal Mucousa, No Blood Throat/Mouth: Normal Inspection, Normal Lips, Normal Teeth, Normal Gums Neck: Non-Tender, Full Range of Motion, Normal Alignment Respiratory: No Respiratory Distress, Lungs Clear, Normal Breath Sounds Cardiovascular: Normal Peripheral Pulses, Regular Rate, Rhythm, No Edema, No Gallop GI/Abdominal Exam: Normal Bowel Sounds, Soft, Non-Tender Back Exam: Normal Inspection, Full Range of Motion Extremities: Normal Inspection, Normal Range of Motion, Non-Tender Neurologic: No Motor/Sensory Deficits, Other (demented) Skin: Normal Color, Other (abrasions-occipital area) Course - Vital Signs Text/Narrative:: Head CT-negative The wound was cleansed with saline and there is no laceration that need suturing. Last Recorded V/S: Last Vital Signs Temp 35.8 C L 03/19/20 23:34 Pulse 55 L 03/19/20 23:34 Resp 17 03/19/20 23:34 BP 108/53 L 03/19/20 23:34 Pulse Ox 92 L 03/19/20 23:34 - Orders/Labs/Meds Orders: Active Orders 24 hr Category Date Time Status Head wo Cont [CT] Stat Exams 03/19/20 22:00 Taken Departure - Departure Time of Disposition: 23:25 Disposition: Home, Self-Care 01 Condition: Good Clinical Impression: Closed head injury, Abrasion - Discharge Information Instructions: Head Injury, Adult, [id number] Referrals: Augustus Montenegro MD [Primary Care Provider] - Forms: ED Department Discharge Additional Instructions: Please read discharge instructions on closed head injury Follow up as needed Sepsis Event Note (ED) - Evaluation Sepsis Screening Result: No Definite Risk - My Orders Last 24 Hours: My Active Orders 03/19/20 22:00 Head wo Cont [CT] Stat - Assessment/Plan Last 24 Hours: My Active Orders 03/19/20 22:00 Head wo Cont [CT] Stat
== END 2020-03-19 23:47 | disposition home or self-care (01) ==
LOC: FB.ED 21:57
DX: S00.01XA Abrasion of scalp, initial encounter (principal); E03.9 Hypothyroidism, unspecified; F41.9 Anxiety disorder, unspecified; F32.9 Major depressive disorder, single episode, unspecified; Z88.5 Allergy status to narcotic agent; Z79.899 Other long term (current) drug therapy; W01.0XXA Fall on same level from slipping, tripping and stumbling without subsequent striking against object, initial encounter
CPT/HCPCS: 70450; 99283-25

== ENCOUNTER 2021-06-24 23:49 | Emergency (ER) | payer MEDICARE ==
[2021-06-24] MEDS ORDERED: Ketorolac 30 MG/ML SDV IM STA (23:58)
[2021-06-24] MEDS ORDERED: traMADol 50 MG Tab PO STA (23:58)
--- NOTE | 2021-06-25 00:30 | EDM.PDOC ---
ED HPI GENERAL MEDICAL PROBLEM - General Chief Complaint: Headache Stated Complaint: HEADACHE Time Seen by Provider: 06/25/21 00:00 Source of Information: Reports: Patient History Limitations: Reports: No Limitations - History of Present Illness INITIAL COMMENTS - FREE TEXT/NARRATIVE: Patient presented to the ED from the [facility] because of migraine for 2 weeks. She is taking oxycodone and tylenol without relief. There is no associated nausea/vomiting,photophobia. The pain is throbbing, 10/10. Headache Pain Score (Numeric/FACES): 10 - Related Data Allergies Allergy/AdvReac Type Severity Reaction Status Date / Time morphine Allergy Itching Verified 12/27/15 23:35 Home Meds: Home Meds Baclofen 1 tab PO TID 12/27/15 [History] Brimonidine/Timolol [Combigan 0.2%/0.5% Ophth Soln] 2 drop OP BID 12/27/15 [History] Latanoprost [Xalatan 0.005% Ophth Soln] 1 drop EYELF BEDTIME 12/27/15 [History] Levothyroxine Sodium [Synthroid] 100 mcg PO DAILY 12/27/15 [History] Sennosides [Senna] 2 tab PO DAILY 12/27/15 [History] oxyCODONE 1 tab PO BID 12/27/15 [History] Ascorbic Acid [Vitamin C] 250 mg PO DAILY 11/17/18 [History] Cranberry 500 mg PO DAILY 11/17/18 [History] Melatonin 5 mg PO BEDTIME 11/17/18 [History] Propranolol HCl [Propranolol HCl ER] 60 mg PO DAILY 11/17/18 [History] Vortioxetine Hydrobromide [Trintellix] 5 mg PO DAILY 11/17/18 [History] hydrOXYzine pamoate [Hydroxyzine Pamoate] 50 mg PO DAILY 11/17/18 [History] risperiDONE [Risperdal] 0.25 mg PO DAILY 11/17/18 [History] predniSONE [Prednisone] 20 mg PO BID #10 tablet 11/18/18 [Rx] Past Medical History HEENT History: Reports: Other (See Below) Other HEENT History: CLOSE-ANGLE GLAUCOMA. Chronic Headaches Respiratory History: Reports: COPD Gastrointestinal History: Reports: GERD, Other (See Below) Other Gastrointestinal History: GASTRIC ULCER Musculoskeletal History: Reports: Osteoarthritis, Osteoporosis, Other (See Below) Other Musculoskeletal History: MULTIPLE SCLEROSIS; CHRONIC PAIN SYNDROME Neurological History: Reports: None Psychiatric History: Reports: Anxiety, Depression Endocrine/Metabolic History: Reports: Hypothyroidism, Vitamin D Deficiency Hematologic History: Reports: None Immunologic History: Reports: None Dermatologic History: Reports: None - Infectious Disease History Infectious Disease History: Reports: None - Past Surgical History Musculoskeletal Surgical History: Reports: Other (See Below) Other Musculoskeletal Surgeries/Procedures:: HAS ARTIFICIAL HIP JOINT Social & Family History - Family History Family Medical History: No Pertinent Family History - Tobacco Use Tobacco Use Status *Q: Unknown Ever Used Tobacco - Caffeine Use Caffeine Use: Reports: None ED ROS GENERAL - Review of Systems Review Of Systems: See Below Constitutional: Reports: No Symptoms HEENT: Reports: No Symptoms Respiratory: Reports: No Symptoms Cardiovascular: Reports: No Symptoms Endocrine: Reports: No Symptoms GI/Abdominal: Reports: No Symptoms : Reports: No Symptoms Musculoskeletal: Reports: No Symptoms Skin: Reports: No Symptoms Neurological: Reports: Headache Psychiatric: Reports: No Symptoms Hematologic/Lymphatic: Reports: No Symptoms - Physical Exam Exam: See Below Exam Limited By: No Limitations General Appearance: Alert, No Apparent Distress Eye Exam: Bilateral Eye: PERRL Ears: Normal External Exam, Normal Canal, Hearing Grossly Normal Nose: Normal Inspection, Normal Mucosa, No Blood Throat/Mouth: Normal Inspection, Normal Lips, Normal Teeth, Normal Gums, Normal Oropharynx, Normal Voice Head Exam: Atraumatic, Normocephalic Neck: Normal Inspection, Supple, Non-Tender, Full Range of Motion Respiratory/Chest: No Respiratory Distress, Lungs Clear, Normal Breath Sounds, No Accessory Muscle Use, Chest Non-Tender Cardiovascular: Normal Peripheral Pulses, Regular Rate, Rhythm, No Edema, No Gallop, No JVD, No Murmur, No Rub GI/Abdominal: Normal Bowel Sounds, Soft, Non-Tender, No Organomegaly, No Distention, No Abnormal Bruit, No Mass Neuro Exam (Abbreviated): Alert, Oriented, CN II-XII Intact, Normal Cognition Back Exam: Normal Inspection, Full Range of Motion Extremities: Normal Inspection, Normal Range of Motion, Non-Tender, No Pedal Edema, Normal Capillary Refill Psychiatric: Normal Affect Skin Exam: Warm Course - Vital Signs Text/Narrative:: Toradol 30 mg IM x1 Tramadol 100 mg PO x1 and her headache is down to a 5/10. She said it's the best ever. Last Recorded V/S: Last Vital Signs Temp 36.1 C 06/25/21 00:00 Pulse 66 06/25/21 00:00 Resp 15 06/25/21 00:00 BP 114/58 L 06/25/21 00:00 Pulse Ox 90 L 06/25/21 00:00 - Orders/Labs/Meds Meds: Medications Discontinued Medications Generic Name Dose Route Start Last Admin Trade Name Melisa PRN Reason Stop Dose Admin Ketorolac Tromethamine 30 mg 06/24/21 23:58 06/25/21 00:03 Ketorolac 30 Mg/Ml Sdv IM 06/24/21 23:59 30 mg NOW STA Administration Tramadol HCl 100 mg 06/24/21 23:58 06/25/21 00:03 Tramadol 50 Mg Tab PO 06/24/21 23:59 100 mg NOW STA Administration Departure - Departure Time of Disposition: 00:30 Disposition: Home, Self-Care 01 Condition: Good Clinical Impression: Headache - Discharge Information Instructions: Migraine Headache, [id number] Referrals: PCP,None [Primary Care Provider] - Forms: ED Department Discharge Additional Instructions: Please read discharge instructions on migraine headache Continue your other medications Migraine Headache Cocktail:Give them all at the same time 1.Toradol 30 mg IM Q8H prn for headache 2.Tramadol 100 mg Q8H prn for headache 3.Tylenol 1000 mg Q8H Follow up as needed Sepsis Event Note (ED) - Evaluation Sepsis Screening Result: No Definite Risk
== END 2021-06-25 00:40 | disposition home or self-care (01) ==
LOC: FB.ED 23:49
DX: R51.9 Headache, unspecified (principal); J44.9 Chronic obstructive pulmonary disease, unspecified; K21.9 Gastro-esophageal reflux disease without esophagitis; Z88.5 Allergy status to narcotic agent; Z79.899 Other long term (current) drug therapy
CPT/HCPCS: 96372; 99283; A9270-GY; J1885

== ENCOUNTER 2022-02-13 13:54 | Emergency (ER) | payer MEDICARE ==
[2022-02-13] MEDS ORDERED: Sodium Chloride 0.9% 10 ML Syringe FLUSH PRN (14:16)
[2022-02-13] MEDS: Magnesium Citrate Solution 296 ML Bottle PO ONE (15:55)
[2022-02-13] MEDS: Bisacodyl 10 MG Supp RECTAL ONE (15:57)
== END 2022-02-13 17:00 | disposition home or self-care (01) ==
LOC: FB.ED 13:54
DX: K59.01 Slow transit constipation (principal); J44.9 Chronic obstructive pulmonary disease, unspecified; E03.9 Hypothyroidism, unspecified; Z88.5 Allergy status to narcotic agent; Z79.899 Other long term (current) drug therapy
CPT/HCPCS: 36415; 71045; 74018; 80053; 81001; 83690; 85027; 99282; 99284-25; A9270-GY

== ENCOUNTER 2022-07-27 19:54 | Emergency (ER) | payer MEDICARE ==
[2022-07-27] MEDS: Ketorolac 30 MG/ML SDV IM ONE (20:10)
== END 2022-07-27 20:50 | disposition home or self-care (01) ==
LOC: FB.ED 19:54
DX: R51.9 Headache, unspecified (principal); J44.9 Chronic obstructive pulmonary disease, unspecified; E03.9 Hypothyroidism, unspecified; Z88.5 Allergy status to narcotic agent; Z79.899 Other long term (current) drug therapy
CPT/HCPCS: 96372; 99283; J1885

== ENCOUNTER 2024-07-19 08:00 | Emergency (ER) | payer MEDICARE, MEDICAID ==
[2024-07-19 08:48] LABS: BASOPHILS ABSOLUTE AUTO 0.1 x10-3/uL (0.0-0.1); BASOPHILS PERCENT AUTO 1.3 % (0.2-1.5); EOSINOPHILS ABSOLUTE AUTO 0.2 x10-3/uL (0.0-0.8); EOSINOPHILS PERCENT AUTO 4.1 % (0.6-8.1); HEMATOCRIT 40.3 % (34.2-48.2); LYMPHOCYTES PERCENT AUTO 19.9 % (18.4-52.1); MEAN CORPUSCULAR HEMOGLOBIN 29.9 pg (23.9-33.9); MEAN CORPUSCULAR HGB CONC 32.3 g/dL (31.9-34.8); MEAN CORPUSCULAR VOLUME 92.5 fL (76.7-100.5); MEAN PLATELET VOLUME 7.9 fL (7.1-12.4); MONOCYTES ABSOLUTE AUTO 0.4 x10-3/uL (0.3-1.0); MONOCYTES PERCENT AUTO 6.9 % (4.4-15.7); NEUTROPHILS ABSOLUTE AUTO 3.5 x10-3/uL (1.5-6.3); NEUTROPHILS PERCENT AUTO 67.8 % (30.8-76.2); PLATELET COUNT,PLT 220 x10(3)uL (151-488); RED BLOOD CELL COUNT 4.36 x10(6)uL (3.60-5.20); RED CELL DISTRIBUTION WIDTH 14.6 % (12.3-16.5); WHITE BLOOD CELL COUNT,WBC 5.2 x10-3/uL (3.0-10.3)
[2024-07-19 08:51] LABS: BLOOD UREA NITROGEN,BUN 15 mg/dL (7-18); BUN/CREATININE RATIO 21.4 (9-20); CARBON DIOXIDE,CO2 32 mmol/L (21-32); CHLORIDE,CL 106 mmol/L (100-110); CREATININE 0.7 mg/dL (0.55-1.02); EST CRCL DRUG DOSING (CG) 59.08 mL/min; ESTIMATED GFR 86 mL/min (>60); GLUCOSE RANDOM 88 mg/dL (80-116); POTASSIUM,K 4.2 mmol/L (3.5-5.3); SODIUM,NA 142 mmol/L (135-145)
[2024-07-19 08:56] LABS: A/G RATIO 0.7; ALANINE AMINOTRANSFERASE,ALT 16 U/L (12-36); ALBUMIN 2.9 g/dL (3.2-4.6); ALKALINE PHOSPHATASE 95 IU/L (56-112); ASPARTATE AMNIOTRANSFERASE,AST 16 IU/L (5-25); BILIRUBIN TOTAL 0.3 mg/dL (0.1-1.3)
[2024-07-19 09:22] LABS: BILIRUBIN,URINE NEGATIVE (NEGATIVE); GLUCOSE,URINE NORMAL (NORMAL); KETONES,URINE NEGATIVE (NEGATIVE); LEUKOCYTE ESTERASE,URINE NEGATIVE (NEGATIVE); NITRITE,URINE NEGATIVE (NEGATIVE); OCCULT BLOOD,URINE NEGATIVE (NEGATIVE); PROTEIN,URINE NEGATIVE (NEGATIVE); UROBILINOGEN,URINE NORMAL (NEGATIVE)
[2024-07-19 09:23] LABS: APPEARANCE,URINE CLEAR (CLEAR); COLOR,URINE YELLOW (YELLOW)
[2024-07-19 10:19] LABS: PRO B-TYPE NATRIUR PEPT,BNPPRO 78 pg/mL (<=450)
[2024-07-19 10:20] LABS: INR 0.9 (1.00-1.24); PROTHROMBIN TIME 9.5 sec (9.0-11.1); PTT,PARTIAL THROMBOPLSTIN TIME 27.5 SECONDS (24.4-33.2)
[2024-07-19 10:28] LABS: TROPONIN I < 4.0 pg/mL (4.0-60.3)
[2024-07-19] MEDS: Furosemide 40 MG/4 ML VIAL IVPUSH ONE (10:30)
[2024-07-19] MEDS: Metolazone 2.5 MG Tab PO ONE (10:30)
== END 2024-07-19 10:46 ==
LOC: FB.ED 08:00
DX: J81.1 Chronic pulmonary edema (principal); J90 Pleural effusion, not elsewhere classified; J44.9 Chronic obstructive pulmonary disease, unspecified; K21.9 Gastro-esophageal reflux disease without esophagitis; E03.9 Hypothyroidism, unspecified; Z79.899 Other long term (current) drug therapy; Z88.5 Allergy status to narcotic agent
CPT/HCPCS: 36415; 71045; 80053; 81003; 83880; 84484; 85025; 85610; 85730; 99284; C1758